=== PATIENT | female | born 1980 | race Two or more races ===

== ENCOUNTER 2017-09-05 13:27 | Emergency (ER) | payer MEDICAID ==
[~2017-09-05] VITALS: Ht 154.9 cm; Wt 63.0 kg
[2017-09-05 14:44] VITALS: BP 104/74
[2017-09-05] MEDS ORDERED: NEOMYCIN-BACITRACIN-POLYM UNITDOSE PKG TOP OINT TOP ONE (15:15)
== END 2017-09-05 15:18 | disposition home or self-care (01) ==
LOC: ER 13:27
DX: S61.304A Unspecified open wound of right ring finger with damage to nail, initial encounter (principal); X50.9XXA Other and unspecified overexertion or strenuous movements or postures, initial encounter; Y93.89 Activity, other specified; Y92.89 Other specified places as the place of occurrence of the external cause; Y99.8 Other external cause status

== ENCOUNTER 2019-01-07 21:46 | Emergency (ER) | payer MEDICAID ==
[~2019-01-07] VITALS: Ht 152.4 cm; Wt 66.7 kg
[2019-01-08 00:33] VITALS: BP 127/77
[2019-01-08] MEDS ORDERED: KETOROLAC TROMETH 60MG/2ML VIAL IM ONE (01:57)
== END 2019-01-08 02:30 | disposition home or self-care (01) ==
LOC: ER 21:47
DX: G43.909 Migraine, unspecified, not intractable, without status migrainosus (principal); F17.210 Nicotine dependence, cigarettes, uncomplicated
CPT/HCPCS: 70450; 96372; 99284; J1885

== ENCOUNTER 2019-06-24 21:50 | Emergency (ER) | payer MEDICAID ==
[~2019-06-24] VITALS: Ht 152.4 cm; Wt 73.7 kg
[2019-06-25 00:37] LABS: Basophils # (auto) 0.1 uL; Basophils % (auto) 1.7 % (0.0-2.0); Eosinophils # (auto) 0.2 uL; Eosinophils % (auto) 2.7 % (0.0-7.0); Hemoglobin 10.7 g/dL (12.2-16.2); Lymphocytes # (auto) 2.2 uL; Lymphocytes % (auto) 37.4 % (10.0-50.0); Mean Corpuscular Hemoglobin 22.4 pg (28.0-32.0); Mean Corpuscular Hgb Conc. 31.5 g/dL (32.0-36.0); Monocytes # (auto) 0.7 uL; Monocytes % (auto) 11.3 % (0.0-12.0); Neutrophils # (auto) 2.8 uL; Neutrophils % (auto) 46.9 % (37.0-80.0); Nucleated Red Blood Cells % 0.1 %; Platelet Count (auto) 360 10^3/uL (140-450); Red Blood Cells 4.79 10^6/uL (4.0-5.20); Red Cell Distribution Width 18.8 % (11.8-14.3)
[2019-06-25 00:48] LABS: INR 0.97 (0.9-1.15)
[2019-06-25 00:56] LABS: Albumin 3.5 g/dL (3.4-5.0); BUN/Creatinine Ratio 14.3; Calcium 8.1 mg/dL (8.5-10.1); Magnesium 2.1 mg/dL (1.6-2.6)
[2019-06-25 00:58] LABS: Bilirubin, Total 0.5 mg/dL (0.2-1.0); Total Protein 7.6 g/dL (6.4-8.2)
[2019-06-25 02:00] LABS: CRP High Sensitivity 0.26 mg/dL (< 0.3)
[2019-06-25 02:23] VITALS: BP 134/77
== END 2019-06-25 02:31 | disposition home or self-care (01) ==
LOC: ER 21:50
DX: D64.9 Anemia, unspecified (principal); R42 Dizziness and giddiness; M54.5 Low back pain; F17.210 Nicotine dependence, cigarettes, uncomplicated
CPT/HCPCS: 36415; 71045; 72110; 80053; 83605; 83735; 83880; 84702; 85025; 85610; 85652; 86141; 87040

== ENCOUNTER 2019-11-07 14:20 | Emergency (ER) | payer MEDICAID ==
[~2019-11-07] VITALS: Ht 152.4 cm; Wt 72.6 kg
[2019-11-07 14:27] VITALS: BP 118/75
== END 2019-11-07 15:31 | disposition home or self-care (01) ==
LOC: ER 14:20
DX: J02.9 Acute pharyngitis, unspecified (principal); H92.02 Otalgia, left ear; F17.210 Nicotine dependence, cigarettes, uncomplicated

== ENCOUNTER 2020-04-11 09:40 | Emergency (ER) | payer MEDICAID ==
[~2020-04-11] VITALS: Ht 177.8 cm; Wt 72.6 kg
[2020-04-11 09:53] VITALS: BP 127/77
== END 2020-04-11 10:56 | disposition home or self-care (01) ==
LOC: ER 09:40
DX: S39.012A Strain of muscle, fascia and tendon of lower back, initial encounter (principal); V43.62XA Car passenger injured in collision with other type car in traffic accident, initial encounter; Y93.89 Activity, other specified; Y92.488 Other paved roadways as the place of occurrence of the external cause; Y99.8 Other external cause status
CPT/HCPCS: 72100

== ENCOUNTER 2020-06-30 18:06 | Emergency (ER) | payer MEDICAID ==
[~2020-06-30] VITALS: Ht 152.4 cm; Wt 72.1 kg
[2020-06-30 18:51] VITALS: BP 150/95
== END 2020-06-30 22:45 | disposition home or self-care (01) ==
LOC: ER 18:06
DX: N39.0 Urinary tract infection, site not specified (principal); N95.1 Menopausal and female climacteric states; Z20.822 Contact with and (suspected) exposure to COVID-19
CPT/HCPCS: 36415; 81002; 81025; 87426; 99283; C9803; U0003

== ENCOUNTER 2020-08-26 10:05 | Emergency (ER) | payer MEDICAID ==
[~2020-08-26] VITALS: Ht 152.4 cm; Wt 66.7 kg
[2020-08-26 10:56] VITALS: BP 141/96
== END 2020-08-26 11:03 | disposition home or self-care (01) ==
LOC: ER 10:05
DX: J06.9 Acute upper respiratory infection, unspecified (principal); Z76.0 Encounter for issue of repeat prescription

== ENCOUNTER 2020-12-07 11:36 | Emergency (ER) | payer MEDICAID ==
[~2020-12-07] VITALS: Ht 152.4 cm; Wt 72.1 kg
[2020-12-07 11:44] VITALS: BP 18/84
== END 2020-12-07 12:15 | disposition home or self-care (01) ==
LOC: ER 11:36
DX: K43.9 Ventral hernia without obstruction or gangrene (principal); J45.909 Unspecified asthma, uncomplicated; F17.210 Nicotine dependence, cigarettes, uncomplicated

== ENCOUNTER 2021-03-04 11:35 | Emergency (ER) | payer MEDICAID ==
[~2021-03-04] VITALS: Ht 152.4 cm; Wt 72.6 kg
[2021-03-04] MEDS ORDERED: SODIUM CHLORIDE 0.9% 500 ML IV ONE (12:00)
[2021-03-04 12:51] LABS: Basophils # (auto) 0.1 10 ^3/uL (0-0.2); Basophils % (auto) 1.1 % (0.0-2.0); Eosinophils # (auto) 0.2 10 ^3/uL (0-0.8); Eosinophils % (auto) 2.6 % (0.0-7.0); Hematocrit 40.9 % (36.0-46.0); Hemoglobin 13.5 g/dL (12.2-16.2); Lymphocytes # (auto) 1.7 10 ^3/uL (0.4-5.4); Lymphocytes % (auto) 22.7 % (10.0-50.0); Mean Corpuscular Hemoglobin 27.8 pg (28.0-32.0); Mean Corpuscular Hgb Conc. 33.1 g/dL (32.0-36.0); Mean Corpuscular Volume 83.9 fL (80.0-100.0); Monocytes # (auto) 0.6 10 ^3/uL (0-1.3); Monocytes % (auto) 7.9 % (0.0-12.0); Neutrophils % (auto) 65.7 % (37.0-80.0); Nucleated Red Blood Cells % 0.1 %; Red Blood Cells 4.87 10^6/uL (4.0-5.20); Red Cell Distribution Width 14.3 % (11.8-14.3); White Blood Cell 7.6 10^3/uL (4.4-10.8)
[2021-03-04 13:11] LABS: Alanine Aminotransferase 16 U/L (13-56); Albumin 3.1 g/dL (3.4-5.0); Anion Gap 4 (5-15); Aspartate Aminotransferase 13 U/L (15-37); BUN/Creatinine Ratio 15.1; Blood Urea Nitrogen 11 mg/dL (7-18); Calcium 7.9 mg/dL (8.5-10.1); Carbon Dioxide 29 mmol/L (21-32); Chloride 104 mmol/L (98-107); GFR African American 114 mL/min; GFR Non-African American 94 mL/min; Glucose 91 mg/dL (74-106); Potassium 3.6 mmol/L (3.5-5.1); Sodium 137 mmol/L (136-145)
[2021-03-04 13:15] LABS: Alkaline Phosphatase 53 U/L (45-117); Bilirubin, Total 0.6 mg/dL (0.2-1.0); Total Protein 7.1 g/dL (6.4-8.2)
[2021-03-04 13:36] LABS: Urine Bacteria NONE SEEN /hpf (None Seen); Urine Blood Negative /uL (Negative); Urine Specific Gravity 1.022 (1.001-1.035); Urine WBC 9 /hpf (0 - 5)
[2021-03-04 14:59] VITALS: BP 127/90
== END 2021-03-04 15:55 | disposition home or self-care (01) ==
LOC: ER 11:35
DX: N39.0 Urinary tract infection, site not specified (principal); R53.1 Weakness; J45.909 Unspecified asthma, uncomplicated; F17.210 Nicotine dependence, cigarettes, uncomplicated; Z20.822 Contact with and (suspected) exposure to COVID-19
CPT/HCPCS: 36415; 71045; 80053; 81001; 83880; 84484; 85025; 85379; 87426; 93005; 96360; 99285; J7040

== ENCOUNTER 2021-07-01 11:49 | Emergency (ER) | payer MEDICAID ==
[~2021-07-01] VITALS: Ht 152.4 cm; Wt 72.6 kg
[2021-07-01 12:43] LABS: Basophils # (auto) 0 10 ^3/uL (0-0.2); Basophils % (auto) 0.8 % (0.0-2.0); Eosinophils # (auto) 0 10 ^3/uL (0-0.8); Eosinophils % (auto) 0.7 % (0.0-7.0); Hematocrit 39.4 % (36.0-46.0); Hemoglobin 13.3 g/dL (12.2-16.2); Lymphocytes # (auto) 1.4 10 ^3/uL (0.4-5.4); Lymphocytes % (auto) 26.5 % (10.0-50.0); Mean Corpuscular Hgb Conc. 33.7 g/dL (32.0-36.0); Mean Corpuscular Volume 83.1 fL (80.0-100.0); Monocytes # (auto) 0.4 10 ^3/uL (0-1.3); Monocytes % (auto) 8.2 % (0.0-12.0); Neutrophils # (auto) 3.4 10 ^3/uL (1.6-8.6); Neutrophils % (auto) 63.8 % (37.0-80.0); Nucleated Red Blood Cells % 0.1 %; Red Blood Cells 4.75 10^6/uL (4.0-5.20); Red Cell Distribution Width 14.8 % (11.8-14.3); White Blood Cell 5.4 10^3/uL (4.4-10.8)
[2021-07-01 12:56] LABS: Albumin 3.4 g/dL (3.4-5.0); Calcium 8.2 mg/dL (8.5-10.1); Magnesium 2.8 mg/dL (1.6-2.6); Potassium 3.4 mmol/L (3.5-5.1)
[2021-07-01 13:01] LABS: INR 0.97 (0.9-1.15); Partial Thromboplastin Time 24.2 sec (23.6-33.0)
[2021-07-01 13:08] LABS: BUN/Creatinine Ratio 13.8; Bilirubin, Total 0.7 mg/dL (0.2-1.0)
[2021-07-01 13:12] LABS: Beta HCG, Quantitative < 1 mlU/mL (1-3); Thyroid Stimulating Hormone 1.58 uIU/mL (0.358-3.74)
[2021-07-01] MEDS ORDERED: POTASSIUM EFFERVESENT TAB 25 MEQ PO ONE (13:45)
[2021-07-01] MEDS ORDERED: LACTATED RINGER'S 1,000 ML IV ONE (13:45)
[2021-07-01] MEDS ORDERED: ACETAMINOPHEN 325 MG TAB PO ONE (13:45)
[2021-07-01 19:05] VITALS: BP 130/88
== END 2021-07-01 19:08 | disposition home or self-care (01) ==
LOC: ER 11:49
DX: R07.89 Other chest pain (principal); F41.9 Anxiety disorder, unspecified; R00.0 Tachycardia, unspecified; I45.6 Pre-excitation syndrome; J45.909 Unspecified asthma, uncomplicated; F17.210 Nicotine dependence, cigarettes, uncomplicated
CPT/HCPCS: 36415; 71046; 80053; 83735; 83880; 84439; 84443; 84484; 84702; 85025; 85379; 85610; 85730; 93005; 96360; 96361

== ENCOUNTER 2021-07-04 22:36 | Emergency (ER) | payer MEDICAID ==
[~2021-07-04] VITALS: Ht 172.7 cm; Wt 72.6 kg
[2021-07-05 02:32] LABS: Basophils # (auto) 0.1 10 ^3/uL (0-0.2); Basophils % (auto) 0.6 % (0.0-2.0); Eosinophils # (auto) 0.1 10 ^3/uL (0-0.8); Eosinophils % (auto) 0.9 % (0.0-7.0); Hematocrit 37.7 % (36.0-46.0); Hemoglobin 12.6 g/dL (12.2-16.2); Lymphocytes # (auto) 1.4 10 ^3/uL (0.4-5.4); Lymphocytes % (auto) 16.1 % (10.0-50.0); Mean Corpuscular Hemoglobin 27.8 pg (28.0-32.0); Mean Corpuscular Hgb Conc. 33.4 g/dL (32.0-36.0); Mean Corpuscular Volume 83.4 fL (80.0-100.0); Monocytes # (auto) 0.7 10 ^3/uL (0-1.3); Monocytes % (auto) 7.6 % (0.0-12.0); Neutrophils # (auto) 6.7 10 ^3/uL (1.6-8.6); Neutrophils % (auto) 74.8 % (37.0-80.0); Nucleated Red Blood Cells % 0.1 %; Red Blood Cells 4.52 10^6/uL (4.0-5.20); White Blood Cell 8.9 10^3/uL (4.4-10.8)
[2021-07-05 02:42] LABS: Albumin 3.1 g/dL (3.4-5.0); BUN/Creatinine Ratio 20.3; Calcium 7.9 mg/dL (8.5-10.1)
[2021-07-05 02:44] LABS: Bilirubin, Total 0.7 mg/dL (0.2-1.0); Total Protein 6.3 g/dL (6.4-8.2)
[2021-07-05 08:39] LABS: INR 0.99 (0.9-1.15); Partial Thromboplastin Time 25.9 sec (23.6-33.0)
[2021-07-05 10:49] VITALS: BP 126/82
== END 2021-07-05 10:58 | disposition home or self-care (01) ==
LOC: ER 22:36 → EDBD 22:36 → ER 07-05 10:57
DX: R07.89 Other chest pain (principal)
CPT/HCPCS: 36415; 71045; 80053; 83880; 84484; 85025; 85379; 85610; 85730; 93005

== ENCOUNTER 2021-07-14 08:26 | Emergency (ER) | payer MEDICAID ==
[~2021-07-14] VITALS: Ht 152.4 cm; Wt 72.1 kg
[2021-07-14] MEDS ORDERED: ASPirin 81 mg TAB PO ONE (09:30)
[2021-07-14 09:40] LABS: Basophils # (auto) 0.1 10 ^3/uL (0-0.2); Basophils % (auto) 1.3 % (0.0-2.0); Eosinophils # (auto) 0.1 10 ^3/uL (0-0.8); Eosinophils % (auto) 1.7 % (0.0-7.0); Hematocrit 37.2 % (36.0-46.0); Hemoglobin 12.3 g/dL (12.2-16.2); Lymphocytes # (auto) 1.2 10 ^3/uL (0.4-5.4); Lymphocytes % (auto) 21.2 % (10.0-50.0); Mean Corpuscular Hemoglobin 27.6 pg (28.0-32.0); Mean Corpuscular Hgb Conc. 33.2 g/dL (32.0-36.0); Mean Corpuscular Volume 83.3 fL (80.0-100.0); Monocytes # (auto) 0.4 10 ^3/uL (0-1.3); Monocytes % (auto) 6.1 % (0.0-12.0); Neutrophils % (auto) 69.7 % (37.0-80.0); Red Blood Cells 4.47 10^6/uL (4.0-5.20); Red Cell Distribution Width 14.9 % (11.8-14.3); White Blood Cell 5.8 10^3/uL (4.4-10.8)
[2021-07-14 10:30] LABS: Potassium 4.1 mmol/L (3.5-5.1)
[2021-07-14 10:48] LABS: Albumin 3.3 g/dL (3.4-5.0); BUN/Creatinine Ratio 15.5; Calcium 8.3 mg/dL (8.5-10.1); Total Protein 7.1 g/dL (6.4-8.2)
[2021-07-14 12:48] VITALS: BP 134/98
== END 2021-07-14 12:49 | disposition home or self-care (01) ==
LOC: ER 08:26
DX: R07.89 Other chest pain (principal); F41.8 Other specified anxiety disorders
CPT/HCPCS: 36415; 80053; 84484; 85025; 93005

== ENCOUNTER 2021-08-11 08:00 | Emergency (ER) | payer MEDICAID ==
[~2021-08-11] VITALS: Ht 152.4 cm; Wt 70.8 kg
[2021-08-11 08:02] VITALS: BP 131/87
[2021-08-11 09:21] LABS: Basophils # (auto) 0.1 10 ^3/uL (0-0.2); Basophils % (auto) 1.8 % (0.0-2.0); Eosinophils # (auto) 0.1 10 ^3/uL (0-0.8); Eosinophils % (auto) 1.5 % (0.0-7.0); Hematocrit 36.5 % (36.0-46.0); Hemoglobin 12.1 g/dL (12.2-16.2); Lymphocytes # (auto) 1.2 10 ^3/uL (0.4-5.4); Lymphocytes % (auto) 23.3 % (10.0-50.0); Mean Corpuscular Hemoglobin 26.8 pg (28.0-32.0); Mean Corpuscular Hgb Conc. 33.2 g/dL (32.0-36.0); Mean Corpuscular Volume 80.7 fL (80.0-100.0); Monocytes # (auto) 0.4 10 ^3/uL (0-1.3); Monocytes % (auto) 6.9 % (0.0-12.0); Neutrophils # (auto) 3.4 10 ^3/uL (1.6-8.6); Neutrophils % (auto) 66.5 % (37.0-80.0); Nucleated Red Blood Cells % 0.1 %; Red Blood Cells 4.53 10^6/uL (4.0-5.20); Red Cell Distribution Width 13.9 % (11.8-14.3); White Blood Cell 5.1 10^3/uL (4.4-10.8)
[2021-08-11 09:34] LABS: Albumin 3.3 g/dL (3.4-5.0); Anion Gap 3 (5-15); Blood Urea Nitrogen 13 mg/dL (7-18); Calcium 8.1 mg/dL (8.5-10.1); Carbon Dioxide 28 mmol/L (21-32); Chloride 107 mmol/L (98-107); Glucose 83 mg/dL (74-106); Potassium 3.9 mmol/L (3.5-5.1); Sodium 138 mmol/L (136-145)
[2021-08-11 09:42] LABS: Alanine Aminotransferase 16 U/L (13-56); Alkaline Phosphatase 52 U/L (45-117); Aspartate Aminotransferase 17 U/L (15-37); BUN/Creatinine Ratio 19.1; GFR African American 123 mL/min; GFR Non-African American 102 mL/min; Total Protein 7.1 g/dL (6.4-8.2)
[2021-08-11 11:11] LABS: Urine Bacteria FEW /hpf (None Seen); Urine Blood 3+ /uL (Negative); Urine Mucus FEW (None Seen); Urine Specific Gravity 1.026 (1.001-1.035); Urine WBC 18 /hpf (0 - 5)
== END 2021-08-11 12:48 | disposition left against medical advice (07) ==
LOC: ER 08:00
DX: R07.89 Other chest pain (principal); Z53.21 Procedure and treatment not carried out due to patient leaving prior to being seen by health care provider
CPT/HCPCS: 36415; 71045; 80053; 81001; 84484; 85025; 93005

== ENCOUNTER 2022-03-01 07:27 | Emergency (ER) | payer MEDICAID ==
[~2022-03-01] VITALS: Ht 152.4 cm; Wt 72.4 kg
[2022-03-01 07:37] VITALS: BP 155/105
[2022-03-01] MEDS ORDERED: IBUPROFEN 600 MG TAB PO ONE (09:15)
[2022-03-01] MEDS ORDERED: IBUP600T28 PO (10:36)
== END 2022-03-01 12:33 | disposition home or self-care (01) ==
LOC: ER 07:27
DX: S02.2XXA Fracture of nasal bones, initial encounter for closed fracture (principal); X58.XXXA Exposure to other specified factors, initial encounter; Y93.89 Activity, other specified; Y92.89 Other specified places as the place of occurrence of the external cause; Y99.8 Other external cause status
CPT/HCPCS: 70140

== ENCOUNTER 2022-06-02 03:20 | Emergency (ER) | payer MEDICAID ==
[~2022-06-02] VITALS: Ht 152.4 cm; Wt 72.7 kg
[~2022-06-02 03:20] MED LIST: AZIT250T8 PO; IBUP600T27 PO; IBUP600T28 PO
[2022-06-02 06:45] VITALS: BP 128/84
[2022-06-02] MEDS ORDERED: EPINEPHrine HCL 1 MG/1 ML AMP SC ONE (07:00)
[2022-06-02] MEDS ORDERED: HYDR50CA PO (07:11)
[2022-06-02] MEDS ORDERED: METH4PAK PO (07:11)
== END 2022-06-02 07:31 | disposition home or self-care (01) ==
LOC: ER 03:20
DX: T78.40XA Allergy, unspecified, initial encounter (principal); I10 Essential (primary) hypertension; Z79.1 Long term (current) use of non-steroidal anti-inflammatories (NSAID); Z79.2 Long term (current) use of antibiotics; Z79.899 Other long term (current) drug therapy; Y92.89 Other specified places as the place of occurrence of the external cause

== ENCOUNTER 2022-10-05 12:56 | Emergency (ER) | payer MEDICAID, OTHER ==
[~2022-10-05] VITALS: Ht 165.1 cm; Wt 68.0 kg
[~2022-10-05 12:56] MED LIST changes: +HYDR50CA PO; +METH4PAK PO
[2022-10-05] MEDS ORDERED: IBUPROFEN 600 MG TAB PO ONE (13:00)
[2022-10-05] MEDS ORDERED: HYDROcodone-ACET 5/325MG TAB PO ONE (13:45)
[2022-10-05 14:23] VITALS: BP 117/74
[2022-10-05] MEDS ORDERED: NAP500T PO (15:46)
== END 2022-10-05 16:20 | disposition home or self-care (01) ==
LOC: EDBD 12:56 → ER 12:56
DX: S30.0XXA Contusion of lower back and pelvis, initial encounter (principal); S00.03XA Contusion of scalp, initial encounter; I10 Essential (primary) hypertension; Z88.1 Allergy status to other antibiotic agents; Z88.6 Allergy status to analgesic agent; W17.89XA Other fall from one level to another, initial encounter; Y93.89 Activity, other specified; Y92.811 Bus as the place of occurrence of the external cause; Y99.8 Other external cause status
CPT/HCPCS: 70450; 72170; 72220